=== PATIENT | male | born 1965 | race Two or more races ===

== ENCOUNTER 2022-12-03 20:44 | Inpatient (IN) | payer OTHER ==
[~2022-12-03] VITALS: Ht 172.7 cm; Wt 138.8 kg
== END 2022-12-11 20:46 | disposition home or self-care (01) | DRG 513 ==
LOC: MEDJ 20:44
PROVIDERS: Orthopaedic Surgery; ADMIT Specialist; ATTEND Specialist
PROC: 0K9D0ZZ Drainage of Left Hand Muscle, Open Approach (ICD-10-PCS; principal; 2022-12-05 11:30)
PROC: 02HV33Z Insertion of Infusion Device into Superior Vena Cava, Percutaneous Approach (ICD-10-PCS; 2022-12-09)
DX: M65.142 Other infective (teno)synovitis, left hand (principal); L02.512 Cutaneous abscess of left hand; L03.114 Cellulitis of left upper limb; Z68.42 Body mass index [BMI] 45.0-49.9, adult; M60.04 Infective myositis, hand and fingers; E11.65 Type 2 diabetes mellitus with hyperglycemia; E11.628 Type 2 diabetes mellitus with other skin complications; E11.621 Type 2 diabetes mellitus with foot ulcer; L97.519 Non-pressure chronic ulcer of other part of right foot with unspecified severity; L03.031 Cellulitis of right toe; I10 Essential (primary) hypertension; E66.01 Morbid (severe) obesity due to excess calories